=== PATIENT | female | born 1975 | race African-American/Black ===

== ENCOUNTER 2020-08-14 17:03 | Emergency (ER) | payer OTHER, SELFPAY ==
[2020-08-14] MEDS ORDERED: HYDROcodone/Acetaminophen 5/325 mg Tablet ONE (18:37)
== END 2020-08-14 19:36 | disposition home or self-care (01) ==
LOC: CSHERS 17:03
DX: M54.12 Radiculopathy, cervical region (principal)
CPT/HCPCS: 72040; 93005